=== PATIENT | male | born 1995 | race Caucasian/White ===

== ENCOUNTER 2017-11-12 20:17 | Emergency (ER) | payer BC, OTHER ==
[2017-11-12] MEDS ORDERED: IBUPROFEN 600 MG TAB PO STA (21:00)
--- NOTE | 2017-11-12 21:07 | ED ---
Chest Pain HPI - General Chief Complaint: Chest Pain Stated Complaint: poss pulled muscle Time Seen by Provider: 11/12/17 20:58 Source: patient Mode of arrival: ambulatory Limitations: no limitations - History of Present Illness Initial Comments: 22-year-old male patient presents for pain in the left pectoralis muscle. Patient states he was lifting weights when he felt a snap and sharp pain in the left side of his chest. Patient then came to the emergency department. He states he notices a divot in his chest muscle compared to the other just muscle. Patient states the pain is worse with movement. Patient states the pain is worse with any movements that requires the use of his chest muscles such as fly movements. Patient denies pain on palpation of the shoulder joint. Patient denies pain in the wrist or elbow. Patient did drop the bar on his chest but does not have any pain on the sternum or ribs. Patient is generally comfortable in the room. Patient denies any shortness of breath or abdominal pain. - Related Data Previous Rx's Medication Instructions Recorded Hydrocodone/Acetaminophen [[place] 1 each PO Q6HR PRN #20 tab 10/02/14 5-325] Naproxen [Naprosyn] 500 mg PO Q12HR #60 tab 10/02/14 HYDROcodone/APAP 5-325MG [[place] 1 tab PO Q6HR PRN #10 tab 11/12/17 5-325] Allergies Allergy/AdvReac Type Severity Reaction Status Date / Time No Known Allergies Allergy Verified 11/12/17 20:33 Review of Systems ROS Statement: Those systems with pertinent positive or pertinent negative responses have been documented in the HPI. ROS Other: All systems not noted in ROS Statement are negative. EKG Findings - EKG Comments: EKG Findings:: Sinus bradycardia, ventricular rate 46, QRS duration 106, NE interval 206 Past Medical History Past Medical History: No Reported History History of Any Multi-Drug Resistant Organisms: None Reported Past Surgical History: No Surgical Hx Reported Past Psychological History: No Psychological Hx Reported Smoking Status: Never smoker Past Alcohol Use History: None Reported Past Drug Use History: None Reported General Exam Limitations: no limitations Head exam: Present: atraumatic, normocephalic, normal inspection Eye exam: Present: normal appearance, PERRL, EOMI. Absent: scleral icterus, conjunctival injection, periorbital swelling Neck exam: Present: normal inspection. Absent: tenderness, meningismus, lymphadenopathy Cardiovascular Exam: Present: regular rate, normal rhythm, normal heart sounds. Absent: systolic murmur, diastolic murmur, rubs, gallop, clicks GI/Abdominal exam: Present: soft, normal bowel sounds. Absent: distended, tenderness, guarding, rebound, rigid Extremities exam: Present: tenderness ( Slight tenderness of the left pectoralis major), normal capillary refill. Absent: full ROM (Slightly limited range of motion of the left shoulder.), pedal edema, joint swelling Psychiatric exam: Present: normal affect Skin exam: Present: warm, dry, intact, normal color. Absent: rash Course Vital Signs 11/12/17 11/12/17 20:28 21:52 Temperature 98.2 F Pulse Rate 58 L 52 L Respiratory 16 18 Rate Blood Pressure 132/84 121/51 O2 Sat by Pulse 100 98 Oximetry Chest Pain MDM - MDM 22-year-old male presents to the emergency department with pain in his left pectoralis muscle after hearing a snap when rifting weights. Patient states the pain is more in his muscle instead of his shoulder joint. Patient states the pain is worse when he uses the muscle in his chest such as fine maneuvers. A chest x-ray was obtained which was within normal limits. Patient will be given anti-inflammatories and [place] for pain. Patient will follow-up with or throat. Patient was given 5 days off work due to being a [employer]. The nature of his work requires physical ability and I am worried that he will be unable to protect himself if he does not have sufficient time off. He will follow up with ortho to further to discuss this matter. Disposition Clinical Impression: Muscle strain Disposition: HOME SELF-CARE Condition: Good Instructions: Muscle Strain (ED) Additional Instructions: Please return to the emergency department if symptoms worsen. Please take ibuprofen as needed and ice the affected area. If pain is severe please take [place]. Follow-up with ortho pain continues. Prescriptions: HYDROcodone/APAP 5-325MG [[place] 5-325] 1 tab PO Q6HR PRN #10 tab PRN Reason: Pain Referrals: None,Stated [Primary Care Provider] - 1-2 days Alejo Messina DO [Doctor of Osteopathic Medicine] - 1-2 days Time of Disposition: 22:20
--- NOTE | 2017-11-12 21:48 | XR ---
EXAMINATION TYPE: XR chest 2V DATE OF EXAM: 11/12/2017 COMPARISON: 10/02/2014 HISTORY: Pain TECHNIQUE: Frontal and lateral views of the chest are obtained. FINDINGS: Heart and mediastinum are normal. Lungs are clear. Diaphragm is normal. Bony thorax appear s normal. IMPRESSION: Normal chest. No change.
[2017-11-12 21:52] VITALS: BP 121/51; PULSE 52; RESP 18
[2017-11-12 22:39] VITALS: TEMP 97.9
== END 2017-11-12 22:39 | disposition home or self-care (01) ==
LOC: EC 20:17
DX: S29.011A Strain of muscle and tendon of front wall of thorax, initial encounter (principal); X50.0XXA Overexertion from strenuous movement or load, initial encounter; Y93.89 Activity, other specified
CPT/HCPCS: 71046; 93005; 99283

== ENCOUNTER → 2019-01-30 | Outpatient (CLI) | payer OTHER ==
--- NOTE | 2019-01-30 10:44 | MR ---
EXAMINATION TYPE: MR shoulder LT wo con DATE OF EXAM: 01/30/2019 COMPARISON: Plain film 10/02/2014 HISTORY: L shoulder pain TECHNIQUE: Multiplanar, multisequence imaging of the left shoulder is performed without contrast. FINDINGS: Rotator Cuff: There is some increased signal within the rotator cuff, anteriorly 8 partial thickness tear may be present within the substance of the supraspinatus tendon and also near the insertion on t he humeral head Acromioclavicular Joint: Intact Glenohumeral Joint: Maintained Labrum: There is some linear increased signal along the anterior labrum consistent with tear. Biceps Tendon: The long head of biceps is in normal location within bicipital groove. Some fluid sign al courses along the tendon Bone marrow signal: Abnormal increased signal on T2, intermediate on T1 is present within the posteri or superior humeral head, small osteochondral defect is present suggesting Hill-Sachs lesion. Other: Small joint effusion present. IMPRESSION: Sequela from patient's prior shoulder dislocation as described, findings suspicious for labral tear a nteriorly, Hill-Sachs lesion. Partial intrasubstance tear suspected of the rotator cuff.
== END | disposition home or self-care (01) ==
LOC: RADMRIMAIN 08:46
PROVIDERS: ATTEND Orthopaedic Surgery
DX: S43.005S Unspecified dislocation of left shoulder joint, sequela (principal); M25.812 Other specified joint disorders, left shoulder

== ENCOUNTER 2020-04-18 21:32 | Emergency (ER) | payer OTHER ==
[2020-04-18 21:38] VITALS: BP 123/68; PULSE 64; RESP 18; TEMP 98.5
--- NOTE | 2020-04-18 22:07 | XR ---
EXAMINATION TYPE: XR shoulder complete LT DATE OF EXAM: 04/18/2020 COMPARISON: NONE HISTORY: Pain TECHNIQUE: 3 views FINDINGS: I see no fracture nor dislocation. Joint spaces are normal. There are no pathologic calcifi cations. There is some linear defect at the inferior glenoid labrum that could relate to previous darin ankit. IMPRESSION: No acute abnormality of the left shoulder. No adverse change.
--- NOTE | 2020-04-18 22:10 | ED ---
General Adult HPI - General Chief complaint: Extremity Injury, Upper Stated complaint: [facility] L Shoulder Injury Time Seen by Provider: 04/18/20 21:39 Source: patient, RN notes reviewed, old records reviewed Mode of arrival: ambulatory Limitations: no limitations - History of Present Illness Initial comments: 25-year-old male presenting with left shoulder injury. Patient had a hyperextension injury to the left shoulder. He's had 2 previous dislocations of the left shoulder. No other injury, no head neck or back trauma. No chest pain or abdominal pain. No numbness or tingling to the left upper extremity. - Related Data Previous Rx's Medication Instructions Recorded Hydrocodone/Acetaminophen [[place] 1 each PO Q6HR PRN #20 tab 10/02/14 5-325] Naproxen [Naprosyn] 500 mg PO Q12HR #60 tab 10/02/14 HYDROcodone/APAP 5-325MG [[place] 1 tab PO Q6HR PRN #10 tab 11/12/17 5-325] Allergies Allergy/AdvReac Type Severity Reaction Status Date / Time No Known Allergies Allergy Verified 04/18/20 21:39 Review of Systems ROS Statement: Those systems with pertinent positive or pertinent negative responses have been documented in the HPI. ROS Other: All systems not noted in ROS Statement are negative. Past Medical History Past Medical History: No Reported History History of Any Multi-Drug Resistant Organisms: None Reported Past Surgical History: No Surgical Hx Reported Past Psychological History: No Psychological Hx Reported Smoking Status: Never smoker Past Alcohol Use History: None Reported Past Drug Use History: None Reported General Exam Limitations: no limitations General appearance: alert, in no apparent distress Head exam: Present: atraumatic, normocephalic Eye exam: Present: normal appearance, PERRL ENT exam: Present: normal exam Neck exam: Present: normal inspection. Absent: tenderness, meningismus Respiratory exam: Present: normal lung sounds bilaterally. Absent: respiratory distress, wheezes Cardiovascular Exam: Present: regular rate, normal rhythm GI/Abdominal exam: Present: soft, distended Extremities exam: Present: normal inspection, normal capillary refill, other (Left upper extremity, no deformity, some pain with range of motion. Distal pulses intact, normal timber sprinkler strength.) Back exam: Present: normal inspection, full ROM. Absent: tenderness Neurological exam: Present: alert, oriented X3, CN II-XII intact, normal gait. Absent: motor sensory deficit Psychiatric exam: Present: normal affect, normal mood Skin exam: Present: warm, dry, intact. Absent: cyanosis, diaphoretic Course Vital Signs 04/18/20 21:33 Temperature 98.5 F Pulse Rate 64 Respiratory 18 Rate Blood Pressure 123/68 O2 Sat by Pulse 98 Oximetry Medical Decision Making - Medical Decision Making X-ray left shoulder performed, negative for fracture dislocation., PATIENT HAS HISTORY THAT IS SUGGESTIVE OF A POSSIBLE DISLOCATION WITH RELOCATION. hE IS PLACED IN A SLING, WILL FOLLOW-UP WITH ORTHOPEDICS. Disposition Clinical Impression: Strain of shoulder Disposition: HOME SELF-CARE Instructions (If sedation given, give patient instructions): Shoulder Sprain (ED) Is patient prescribed a controlled substance at d/c from ED?: No Referrals: None,Stated [Primary Care Provider] - 1-2 days Alejo Messina DO [Doctor of Osteopathic Medicine] - 1-2 days
== END 2020-04-18 22:32 | disposition home or self-care (01) ==
LOC: EC 21:32
DX: S46.912A Strain of unspecified muscle, fascia and tendon at shoulder and upper arm level, left arm, initial encounter (principal); X58.XXXA Exposure to other specified factors, initial encounter; Y92.69 Other specified industrial and construction area as the place of occurrence of the external cause; Y99.0 Civilian activity done for income or pay
CPT/HCPCS: 99284

== ENCOUNTER 2022-08-26 16:17 | Emergency (ER) | payer BC, OTHER ==
[2022-08-26 16:20] VITALS: BP 131/84; PULSE 55; RESP 20; TEMP 98
[2022-08-26] MEDS ORDERED: LIDOCAINE 1% INJ 10MG/ML (30 ML VIAL-PF) SQ ONE (16:24)
[2022-08-26] MEDS ORDERED: DIPH,PERTUS(ACELL)TETVAC-LF 0.5 ML VIAL IM ONE (16:24)
[2022-08-26] MEDS ORDERED: BACITRACIN OINT 1 EACH PACKET TOPICAL ONE (16:45)
--- NOTE | 2022-08-26 16:47 | ED ---
Wound/Laceration HPI - General Chief Complaint: Wound/Laceration Stated Complaint: L ear lac Time Seen by Provider: 08/26/22 16:22 Source: patient, RN notes reviewed Mode of arrival: ambulatory Limitations: no limitations - History of Present Illness Initial Comments: This is a pleasant 27-year-old male presents to emergency department complaining of a laceration to his left ear. Patient was at a family member's house. He stood up and struck his left ear on the claw of a taxidermy bear. Patient denying any other injuries. Injury occurred about one hour prior to arrival. No significant pain. Last tetanus is unknown. No headache, no fever or chills, no changes in vision or hearing, no sore throat or difficulty with speech, no neck pain, no chest pain or shortness of breath, no abdominal pain, no nausea or vomiting, no changes in urination or bowel movements, no numbness or tingling, no extremity pain, no skin rashes or lesions. Past medical, surgical, social, and family history reviewed. - Related Data Home Medications Medication Instructions Recorded Confirmed No Known Home Medications 04/18/20 04/18/20 Allergies Allergy/AdvReac Type Severity Reaction Status Date / Time No Known Allergies Allergy Verified 08/26/22 16:20 Review of Systems ROS Statement: Those systems with pertinent positive or pertinent negative responses have been documented in the HPI. ROS Other: All systems not noted in ROS Statement are negative. Past Medical History Past Medical History: No Reported History History of Any Multi-Drug Resistant Organisms: None Reported Past Surgical History: No Surgical Hx Reported Past Psychological History: No Psychological Hx Reported Smoking Status: Never smoker Past Alcohol Use History: None Reported Past Drug Use History: None Reported General Exam Limitations: no limitations General appearance: alert, in no apparent distress Head exam: Present: atraumatic, normocephalic, normal inspection Eye exam: Present: normal appearance, EOMI. Absent: scleral icterus, conjunctival injection ENT exam: Present: normal exam. Absent: mucous membranes dry, normal external ear exam (Patient has a 2 cm laceration to the helix of the left ear. Does not involve the cartilage.) Neck exam: Present: normal inspection, full ROM Respiratory exam: Absent: respiratory distress Cardiovascular Exam: Present: regular rate, normal rhythm, normal heart sounds. Absent: systolic murmur, diastolic murmur, rubs, gallop, clicks GI/Abdominal exam: Absent: distended Extremities exam: Present: normal inspection, full ROM Neurological exam: Present: alert, oriented X3, CN II-XII intact, normal gait. Absent: motor sensory deficit Psychiatric exam: Present: normal affect, normal mood Skin exam: Present: warm, dry, normal color. Absent: rash Course Vital Signs 08/26/22 16:19 Temperature 98 F Pulse Rate 55 L Respiratory 20 Rate Blood Pressure 131/84 O2 Sat by Pulse 99 Oximetry Procedures - Laceration Laceration #1 Consent Obtained: verbal consent Indication: laceration Site: other (Left ear, helix) Size (cm): 2 Description: flap, irregular Depth: simple, single layer Anesthetic Used: lidocaine 1% Anesthesia Technique: local infiltration, nerve block (Auricular block) Amount (mls): 3 Pre-repair: wound explored, irrigated extensively, deep structures intact Type of Sutures: nylon Size of Sutures: 6-0 Number of Sutures: 4 Technique: simple, interrupted Patient Tolerated Procedure: well, no complications Medical Decision Making - Medical Decision Making Was pt. sent in by a medical professional or institution? @ -no Did you speak to anyone other than the patient for history? @ -no Did you review nursing and triage notes? @ -yes Were old charts reviewed? @ -no Differential Diagnosis? @ -Isolated laceration to the left external ear EKG interpreted by me (3pts min.)? @ -[none] X-rays interpreted by me (1pt min.)? @ -[none] CT interpreted by me (1pt min.)? @ -[none] U/S interpreted by me (1pt. min.)? @ -[none] What testing was considered but not performed? (CT, X-rays, U/S, labs)? Why? @ no What meds were considered but not given? Why? @ -I did consider antibiotics. However this was a superficial wound that was treated immediately. Adequate irrigation. I believe the risks of infection are low. Antivirus were deferred Did you discuss the management of the patient with other professionals? @ -ED attending physician. Patient was also seen by the ED attending physician. Did you reconcile home meds? @ -[none] Was smoking cessation discussed for >3mins.? @ -[none] Was critical care preformed (if so, how long)? @ -[none] Were there social determinants of health that impacted care today? How? (Homelessness, low income, unemployed, alcoholism, drug addiction, transportation, low edu. Level, literacy, decrease access to med. care, [facility], rehab)? @ -none Was there de-escalation of care discussed even if they declined? (Discuss DNR or withdrawal of care, Hospice)? @ -no What co-morbidities impacted this encounter? (DM, HTN, Smoking, COPD, CAD, Cancer, CVA, Hep., AIDS, mental health diagnosis, sleep apnea, morbid obesity)? @ -no Was patient admitted / discharged? @ -Patient was discharged in stable condition. Given signs and symptoms of infection. Return in follow-up parameters. Suture removal in 7 days. Patient voiced understanding. Undiagnosed new problem with uncertain prognosis? @ -[none] Drug Therapy requiring intensive monitoring for toxicity (Heparin, Nitro, Insulin, Cardizem)? @ -[none] Were any procedures done? @ -Laceration repair Diagnosis/symptom? @ -Left ear laceration Acute, or Chronic, or Acute on Chronic? @ -Acute Uncomplicated (without systemic symptoms) or Complicated (systemic symptoms)? @ -Uncomplicated Side effects of treatment? @ -[none] Exacerbation, Progression, or Severe Exacerbation] @ -[no] Poses a threat to life or bodily function? @ -[no] Patient was told to return to the ER for any signs or symptoms worsen. Told to return immediately if any other problems arise. All questions answered. Treatment plan discussed. Patient in agreement Every effort has been made to ensure accuracy of this dictation. However, due to the limitations of electronic medical records and dictation devices, errors in charting still occur. The case was discussed in detail with ED attending physician. Presentation, findings, treatment plan discussed in detail. Supervising physician Dr. Lock Disposition Clinical Impression: Laceration of left ear, external Disposition: HOME SELF-CARE Condition: Good Instructions (If sedation given, give patient instructions): Laceration (ED) Additional Instructions: Suture removal in 7 days. Wash daily with warm soap and water, gently. You may then use a small amount of bacitracin or white petroleum jelly to cover the wound until your sutures are removed. Any signs of infection such as fever, redness, swelling, weeping of the wound, or increased pain around the area of the laceration please return to the emergency department to be reevaluated Follow-up with your regular physician as directed. Return to the ER immediately if any symptoms worsen, new symptoms arise, or any other problems develop. Is patient prescribed a controlled substance at d/c from ED?: No Referrals: Alejo Braun DO [Primary Care Provider] - 1-2 days Time of Disposition: 16:46
== END 2022-08-26 17:09 | disposition home or self-care (01) ==
LOC: EC 16:17
DX: S01.322A Laceration with foreign body of left ear, initial encounter (principal); Z23 Encounter for immunization; W22.8XXA Striking against or struck by other objects, initial encounter
CPT/HCPCS: 90715; 99282; 90471; 12011; J2001